=== PATIENT | female | born 1995 | race American Indian/Alaskan Native ===

== ENCOUNTER 2021-11-28 16:21 | Inpatient (IN) | payer MEDICAID ==
[2021-11-28] MEDS ORDERED: SODIUM CHLORIDE 0.9% 1000 ML 1,000 ML IV ONE (16:53)
[2021-11-28] MEDS ORDERED: ONDANSETRON 4 MG/2 ML INJ IV ONE (16:53)
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
[2021-11-28 18:07] LABS: Basophils % (Auto) 0.7 % (0.0-1.8); Hematocrit 42.3 % (30.3-42.9); Hemoglobin 13.9 gm/dl (10.1-14.3); Lymphocytes # (Auto) 0.8 K/mm3 (1.2-5.4); Lymphocytes % (Auto) 14.8 % (13.4-35.0); Mean Corpuscular HGB Conc 33 % (30-34); Mean Corpuscular Volume 93 fl (79-97); Monocytes # (Auto) 0.5 K/mm3 (0.0-0.8); Monocytes % (Auto) 8.7 % (0.0-7.3); Platelet Count 241 K/mm3 (140-440); Red Blood Count 4.56 M/mm3 (3.65-5.03); Red Cell Distribution Width 13.6 % (13.2-15.2)
[2021-11-28 18:32] LABS: Alanine Aminotransferase 108 units/L (7-56); Albumin 4.9 g/dL (3.9-5); BUN/Creatinine Ratio 20; Blood Urea Nitrogen 16 mg/dL (7-17); Calcium 9.5 mg/dL (8.4-10.2); Hemolysis Index 4
[2021-11-28] MEDS ORDERED: DEXTROSE 5% IV ONE ×2 (20:23→21:25)
[2021-11-28] MEDS ORDERED: ACETADOTE IV ONE ×2 (20:23→21:25)
[2021-11-28] MEDS ORDERED: WATER IV ONE ×2 (20:23→21:25)
[2021-11-28 21:01] LABS: INR 1.17 (0.87-1.13)
[2021-11-28] MEDS ORDERED: ACETAMINOPHEN 325 MG TAB PO PRN (21:31)
[2021-11-28] MEDS ORDERED: MORPHINE 4 MG/1 ML INJ IV PRN (21:31)
[2021-11-28] MEDS ORDERED: ALBUTEROL 2.5 MG/3 ML NEBU IH PRN (21:31)
[2021-11-28] MEDS ORDERED: MORPHINE 2 MG/1 ML INJ IV PRN (21:31)
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
[2021-11-28] MEDS: ONDANSETRON 4 MG/2 ML INJ IV PRN (23:20)
[2021-11-28] MEDS: FAMOTIDINE 20 MG/2 ML INJ IV SCH (23:20)
[2021-11-29] MEDS ORDERED: WATER IV ONE ×2 (01:25→21:30)
[2021-11-29] MEDS ORDERED: ACETADOTE IV ONE ×2 (01:25→21:30)
[2021-11-29] MEDS ORDERED: DEXTROSE 5% IV ONE ×2 (01:25→21:30)
[2021-11-29 02:03] LABS: Bilirubin,Urine NEG (Negative); Blood,Urine MOD (Negative); Color,Urine Yellow (Yellow); Urobilinogen,Urine < 2.0 mg/dL (<2.0)
[2021-11-29 02:10] LABS: Bacteria,Urine 1+ /HPF (Negative); Mucus,Urine FEW /HPF
[2021-11-29 02:12] LABS: Amphetamine Screen,Urine PRESUMPTIVE NEGATIVE; Benzodiazepines Screen,Urine PRESUMPTIVE NEGATIVE; Cannabinoid Screen,Urine PRESUMPTIVE NEGATIVE; Cocaine Screen,Urine PRESUMPTIVE NEGATIVE; Methadone Screen,Urine PRESUMPTIVE NEGATIVE; Opiate Screen,Urine PRESUMPTIVE NEGATIVE
[2021-11-29 02:19] LABS: HCG Qualitative,Urine Negative (Negative)
[2021-11-29] MEDS: HEPARIN 5,000 UNIT/1 ML VIAL SUB-Q SCH ×2 (02:34→09:09)
[2021-11-29] MEDS: D5W/0.45% NACL 1,000 ML IV SCH ×2 (02:35→09:08)
[2021-11-29 05:25] LABS: Basophils % (Auto) 0.4 % (0.0-1.8); Eosinophils # (Auto) 0.1 K/mm3 (0.0-0.4); Eosinophils % (Auto) 0.6 % (0.0-4.3); Hematocrit 38.4 % (30.3-42.9); Hemoglobin 13.1 gm/dl (10.1-14.3); Lymphocytes # (Auto) 1.2 K/mm3 (1.2-5.4); Lymphocytes % (Auto) 14.7 % (13.4-35.0); Mean Corpuscular HGB Conc 34 % (30-34); Mean Corpuscular Volume 92 fl (79-97); Monocytes # (Auto) 0.9 K/mm3 (0.0-0.8); Monocytes % (Auto) 11.2 % (0.0-7.3); Platelet Count 222 K/mm3 (140-440); Red Blood Count 4.19 M/mm3 (3.65-5.03); Red Cell Distribution Width 13.2 % (13.2-15.2)
[2021-11-29 05:36] LABS: INR 1.32 (0.87-1.13)
[2021-11-29 05:41] LABS: Alanine Aminotransferase 99 units/L (7-56); Albumin 4.1 g/dL (3.9-5); Blood Urea Nitrogen 10 mg/dL (7-17); Calcium 8.5 mg/dL (8.4-10.2); Hemolysis Index 15
[2021-11-29 05:46] LABS: BUN/Creatinine Ratio 17
[2021-11-29] MEDS: IPRATROPIUM/ALBUTEROL SULFATE 3 ML AMPUL.NEB IH SCH ×4 (07:45→19:55)
[2021-11-29] MEDS: FAMOTIDINE 20 MG/2 ML INJ IV SCH (09:09)
[2021-11-29] MEDS: ONDANSETRON 4 MG/2 ML INJ IV PRN (09:09)
[2021-11-29 09:28] LABS: Alanine Aminotransferase 96 units/L (7-56); Blood Urea Nitrogen 8 mg/dL (7-17); Calcium 8.5 mg/dL (8.4-10.2); Hemolysis Index 46
[2021-11-29 09:48] LABS: BUN/Creatinine Ratio 13
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
[2021-11-29 19:46] LABS: INR 1.25 (0.87-1.13)
[2021-11-29 20:00] LABS: Alanine Aminotransferase 134 units/L (7-56); Albumin 4.2 g/dL (3.9-5); Blood Urea Nitrogen 4 mg/dL (7-17); Hemolysis Index 77
[2021-11-29 20:08] LABS: BUN/Creatinine Ratio 6
[2021-11-29] MEDS: ENOXAPARIN 40 MG/0.4 ML INJ SUB-Q SCH (23:13)
[2021-11-29] MEDS: FAMOTIDINE 20 MG TAB PO SCH (23:13)
[2021-11-30] MEDS: IPRATROPIUM/ALBUTEROL SULFATE 3 ML AMPUL.NEB IH SCH ×4 (04:02→21:12)
[2021-11-30 05:42] LABS: Alanine Aminotransferase 206 units/L (7-56)
[2021-11-30 05:52] LABS: Bilirubin,Direct < 0.2 mg/dL (0-0.2)
[2021-11-30] MEDS: ONDANSETRON 4 MG/2 ML INJ IV PRN (07:58)
[2021-11-30] MEDS: FAMOTIDINE 20 MG TAB PO SCH ×2 (09:43→22:22)
[2021-11-30 11:41] LABS: INR 1.16 (0.87-1.13)
[2021-11-30 11:44] LABS: Alanine Aminotransferase 252 units/L (7-56); Albumin 3.8 g/dL (3.9-5); Bilirubin,Direct < 0.2 mg/dL (0-0.2)
[2021-11-30] MEDS ORDERED: LACTATED RINGERS 1,000 ML IV ONE (12:27)
--- NOTE | 2021-11-30 13:24 | Progress Note ---
Assessment and Plan Tylenol Overdose 11/30/21: Discussed over the phone with mother and two other family members. Answered all questions to the best of my abilities. Did explain the risk of needing a transplant. Will continue to monitor liver function, if numbers continue to increase, will transfer to transplant capable facility. COntinue NAC therapy. NAC MOnitor LFT's Psych consult CCT 31 minutes. Subjective Date of service: 11/30/21 Interval history: LFT's worse Objective - Constitutional Vitals: Vital Signs - 12hr 11/30/21 11/30/21 11/30/21 01:30 02:00 02:30 Temperature Pulse Rate 72 68 66 Pulse Rate [ Anterior Bilateral Throughout] Pulse Rate [ From Monitor] Respiratory 17 13 17 Rate Respiratory Rate [Anterior Bilateral Throughout] Blood Pressure 101/53 103/57 103/57 O2 Sat by Pulse 99 98 98 Oximetry 11/30/21 11/30/21 11/30/21 03:00 03:30 04:00 Temperature 98.7 F Pulse Rate 76 68 64 Pulse Rate [ Anterior Bilateral Throughout] Pulse Rate [ 69 From Monitor] Respiratory 18 16 16 Rate Respiratory Rate [Anterior Bilateral Throughout] Blood Pressure 103/57 97/69 91/53 O2 Sat by Pulse 98 98 98 Oximetry 11/30/21 11/30/21 11/30/21 04:02 04:30 05:00 Temperature Pulse Rate 108 H 78 Pulse Rate [ 71 Anterior Bilateral Throughout] Pulse Rate [ From Monitor] Respiratory 17 22 Rate Respiratory 17 Rate [Anterior Bilateral Throughout] Blood Pressure 91/53 105/74 O2 Sat by Pulse 100 100 Oximetry 11/30/21 11/30/21 11/30/21 05:30 06:00 06:30 Temperature Pulse Rate 71 68 72 Pulse Rate [ Anterior Bilateral Throughout] Pulse Rate [ From Monitor] Respiratory 18 16 17 Rate Respiratory Rate [Anterior Bilateral Throughout] Blood Pressure 105/74 93/54 93/54 O2 Sat by Pulse 98 99 98 Oximetry 11/30/21 11/30/21 11/30/21 07:00 07:15 07:31 Temperature Pulse Rate 70 67 Pulse Rate [ 80 Anterior Bilateral Throughout] Pulse Rate [ From Monitor] Respiratory 17 18 Rate Respiratory 18 Rate [Anterior Bilateral Throughout] Blood Pressure 99/61 99/61 O2 Sat by Pulse 99 98 100 Oximetry 11/30/21 11/30/21 11/30/21 08:00 08:31 09:00 Temperature 98.9 F Pulse Rate 69 76 88 Pulse Rate [ Anterior Bilateral Throughout] Pulse Rate [ 80 From Monitor] Respiratory 21 23 24 Rate Respiratory Rate [Anterior Bilateral Throughout] Blood Pressure 107/60 107/60 118/78 O2 Sat by Pulse 99 100 100 Oximetry 11/30/21 11/30/21 11/30/21 09:12 09:31 10:01 Temperature Pulse Rate 80 97 H 93 H Pulse Rate [ Anterior Bilateral Throughout] Pulse Rate [ From Monitor] Respiratory 18 21 Rate Respiratory Rate [Anterior Bilateral Throughout] Blood Pressure 118/78 118/78 O2 Sat by Pulse 100 100 Oximetry 11/30/21 11/30/21 11/30/21 10:31 11:00 11:31 Temperature Pulse Rate 85 87 63 Pulse Rate [ Anterior Bilateral Throughout] Pulse Rate [ From Monitor] Respiratory 20 24 19 Rate Respiratory Rate [Anterior Bilateral Throughout] Blood Pressure 118/78 123/79 123/79 O2 Sat by Pulse 96 100 98 Oximetry 11/30/21 11/30/21 11/30/21 11:34 11:35 11:36 Temperature 99.1 F Pulse Rate 73 Pulse Rate [ Anterior Bilateral Throughout] Pulse Rate [ 73 From Monitor] Respiratory 16 Rate Respiratory Rate [Anterior Bilateral Throughout] Blood Pressure O2 Sat by Pulse 99 Oximetry 11/30/21 11/30/21 11/30/21 12:01 12:31 13:00 Temperature Pulse Rate 72 73 87 Pulse Rate [ Anterior Bilateral Throughout] Pulse Rate [ From Monitor] Respiratory 18 17 17 Rate Respiratory Rate [Anterior Bilateral Throughout] Blood Pressure 93/53 93/53 114/51 O2 Sat by Pulse 99 98 99 Oximetry - Labs CBC & Chem 7: 12/01/21 04:33 12/01/21 04:33 Labs: Abnormal lab results 11/29/21 11/29/21 11/29/21 Range/Units 18:58 18:58 18:58 PT 17.2 H (12.2-14.9) Sec. INR 1.25 H (0.87-1.13) BUN 4 L (7-17) mg/dL Glucose 103 H (65-100) mg/dL AST 91 H (5-40) units/L ALT 134 H (7-56) units/L Total Protein (6.3-8.2) g/dL Albumin (3.9-5) g/dL Acetaminophen < 5.0 L (10.0-30.0) ug/mL 11/30/21 11/30/21 11/30/21 Range/Units 05:05 10:52 11:09 PT 16.1 H (12.2-14.9) Sec. INR 1.16 H (0.87-1.13) BUN (7-17) mg/dL Glucose (65-100) mg/dL AST 137 H 159 H (5-40) units/L ALT 206 H 252 H (7-56) units/L Total Protein 6.2 L (6.3-8.2) g/dL Albumin 3.8 L (3.9-5) g/dL Acetaminophen (10.0-30.0) ug/mL Medications & Allergies - Medications Allergies/Adverse Reactions: Allergies No Known Allergies Allergy (Verified 11/28/21 20:30) Home Medications: Home Medications Medication Instructions Recorded Confirmed Last Taken Type No Known Home Medications [No 11/29/21 11/29/21 Unknown History Reported Home Medications] Active Medications: Generic Name Dose Route Start Last Admin Trade Name Freq PRN Reason Stop Dose Admin Albuterol 2.5 mg 11/28/21 21:31 Albuterol 2.5 Mg/3 Ml Nebu IH Q3HRT PRN Shortness Of Breath Albuterol/Ipratropium 1 ampul 11/29/21 02:00 11/30/21 07:15 Ipratropium/Albuterol Sulfate 3 Ml Ampul.Neb IH 1 ampul Q6HRT GLEN Administration Enoxaparin Sodium 40 mg 11/29/21 22:00 11/29/21 23:13 Enoxaparin 40 Mg/0.4 Ml Inj SUB-Q 40 mg QDAY@2200 GLEN Administration Protocol Famotidine 20 mg 11/29/21 22:00 11/30/21 09:43 Famotidine 20 Mg Tab PO 20 mg BID GLEN Administration Acetylcysteine 7,500 mg/ 1,037.5 mls @ 62.5 mls/hr 11/29/21 21:30 11/29/21 22:12 Dextrose IV 11/30/21 14:05 62.5 mls/hr ONCE ONE Administration Lactated Ringer's 1,000 mls @ 999 mls/hr 11/30/21 12:27 Lactated Ringers IV 11/30/21 13:27 BOLUS ONE Ondansetron HCl 4 mg 11/28/21 21:31 11/30/21 07:58 Ondansetron 4 Mg/2 Ml Inj IV 4 mg Q8H PRN Administration Nausea And Vomiting Sodium Chloride 10 ml 11/28/21 22:00 11/30/21 09:43 Sodium Chloride 0.9% 10 Ml Flush Syringe IV 10 ml BID GLEN Administration Sodium Chloride 10 ml 11/28/21 21:31 Sodium Chloride 0.9% 10 Ml Flush Syringe IV PRN PRN LINE FLUSH
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
[2021-11-30] MEDS ORDERED: traMADol 50 MG TAB PO PRN (13:44)
--- NOTE | 2021-11-30 14:21 | Progress Note ---
Subjective - Reason for Consult Consult date: 11/30/21 Reason for consult: Intentional OD - Chief Complaint Chief complaint: The patient was seen today. She appears down and withdrawn. She says she feels a little bit better. The patient says she has a headache. When asking about SI, she says "no. I love life. I want to live. I have a son I have to live for." She denies homicidal thoughts and hallucinations. Will start antidepressant to help with depression. REVIEW OF SYSTEMS Constitutional: Negative for weight loss ENT: Negative for stridor Respiratory: Negative for cough or hemoptysis All other systems reviewed and are negative MENTAL STATUS EXAMINATION General Appearance and Behavior: Age appropriate, wearing appropriate clothes, cooperative, polite with questioning, good eye contact Cooperation: cooperative Psychomotor Behavior: Psychomotor normal Mood: better Affect and affective range: congruent with stated mood Thought Process: Goal directed Thought Content: Reality oriented Speech: Normal volume, Regular rate and rhythm Suicidal Ideation: Denies Homicidal Ideation: Denies Hallucination: Denies Delusions: None elicited Impulse Control: Limited Insight and Judgment: Limited Memory: Intact Attention:attentive Orientation: Alert and oriented Diagnoses: Intentional Overdose of Acetaminophen Treatment Plan 1013 Lexapro 5mg po daily Sitter: Defer to primary Medical: Per primary Disposition: Recommend acute psychiatric inpatient treatment Will follow. Thanks Case staffed with Dr. Rothman Mental Status Exam - Vital signs Last Vital Signs Temp 99.1 F 11/30/21 11:35 Pulse 91 H 11/30/21 14:01 Resp 25 H 11/30/21 14:01 BP 114/51 11/30/21 14:01 Pulse Ox 99 11/30/21 14:01
[2021-11-30] MEDS ORDERED: DEXTROSE 5% IV ONE (14:30)
[2021-11-30] MEDS ORDERED: WATER IV ONE (14:30)
[2021-11-30] MEDS ORDERED: ACETADOTE IV ONE (14:30)
[2021-11-30] MEDS: ESCITALOPRAM 10 MG TAB PO SCH (17:40)
[2021-11-30 19:46] LABS: INR 1.14 (0.87-1.13)
[2021-11-30 20:04] LABS: Alanine Aminotransferase 253 units/L (7-56); Albumin 3.8 g/dL (3.9-5)
[2021-11-30 20:09] LABS: Bilirubin,Direct < 0.2 mg/dL (0-0.2)
[2021-11-30] MEDS: ENOXAPARIN 40 MG/0.4 ML INJ SUB-Q SCH (22:23)
[2021-12-01 01:04] LABS: INR 1.16 (0.87-1.13)
[2021-12-01 01:08] LABS: Alanine Aminotransferase 239 units/L (7-56); Albumin 3.7 g/dL (3.9-5)
[2021-12-01 01:09] LABS: Bilirubin,Direct < 0.2 mg/dL (0-0.2)
[2021-12-01] MEDS: IPRATROPIUM/ALBUTEROL SULFATE 3 ML AMPUL.NEB IH SCH ×4 (01:15→20:00)
[2021-12-01 05:10] LABS: Hematocrit 38.7 % (30.3-42.9); Mean Corpuscular HGB Conc 34 % (30-34); Mean Corpuscular Volume 92 fl (79-97); Platelet Count 221 K/mm3 (140-440); Red Cell Distribution Width 13.7 % (13.2-15.2)
[2021-12-01 05:18] LABS: INR 1.09 (0.87-1.13)
[2021-12-01 05:19] LABS: Partial Thromboplastin Time 30.4 Sec. (24.2-36.6)
[2021-12-01 05:25] LABS: Alanine Aminotransferase 225 units/L (7-56); Albumin 3.6 g/dL (3.9-5); Blood Urea Nitrogen 2 mg/dL (7-17); Calcium 8.6 mg/dL (8.4-10.2); Hemolysis Index 7
[2021-12-01 05:28] LABS: Alanine Aminotransferase 223 units/L (7-56); Albumin 3.8 g/dL (3.9-5)
[2021-12-01 05:36] LABS: Bilirubin,Direct < 0.2 mg/dL (0-0.2)
[2021-12-01 05:39] LABS: BUN/Creatinine Ratio 3
[2021-12-01] MEDS ORDERED: POTASSIUM CHLORIDE ER 20 MEQ TAB PO ONE (06:16)
[2021-12-01] MEDS ORDERED: WATER IV ONE (07:15)
[2021-12-01] MEDS ORDERED: DEXTROSE 5% IV ONE (07:15)
[2021-12-01] MEDS ORDERED: ACETADOTE IV ONE (07:15)
[2021-12-01] MEDS: FAMOTIDINE 20 MG TAB PO SCH ×2 (09:33→21:05)
[2021-12-01] MEDS: ESCITALOPRAM 10 MG TAB PO SCH (09:33)
--- NOTE | 2021-12-01 10:37 | Progress Note ---
Assessment and Plan Tylenol Overdose 12/01/21: Touch base with poison control again to see if nac should be continued. Called mother but no answer to update her. Fine with keeping in unit but if NAC is needed and can be done on the floor, no issues with transfer, with sitter. Appreciate psych, needs in patient therapy. 11/30/21: Discussed over the phone with mother and two other family members. Answered all questions to the best of my abilities. Did explain the risk of needing a transplant. Will continue to monitor liver function, if numbers con tinue to increase, will transfer to transplant capable facility. COntinue NAC therapy. NAC MOnitor LFT's Psych consult CCT 31 minutes. Subjective Date of service: 12/01/21 Interval history: LFTs, did peak but now trending back down. Still on NAC. INR is normal. Objective - Constitutional Vitals: Vital Signs - 12hr 11/30/21 11/30/21 11/30/21 23:00 23:13 23:31 Temperature Pulse Rate 76 90 128 H Pulse Rate [ Anterior Bilateral Throughout] Pulse Rate [ From Monitor] Respiratory 19 21 23 Rate Respiratory Rate [Anterior Bilateral Throughout] Blood Pressure 120/80 120/80 120/80 O2 Sat by Pulse 99 100 97 Oximetry 11/30/21 12/01/21 12/01/21 23:57 00:00 00:31 Temperature 99.0 F Pulse Rate 78 95 H Pulse Rate [ Anterior Bilateral Throughout] Pulse Rate [ 74 From Monitor] Respiratory 20 23 Rate Respiratory Rate [Anterior Bilateral Throughout] Blood Pressure 98/50 98/50 O2 Sat by Pulse 98 99 Oximetry 12/01/21 12/01/21 12/01/21 01:00 01:31 02:00 Temperature Pulse Rate 84 73 95 H Pulse Rate [ Anterior Bilateral Throughout] Pulse Rate [ From Monitor] Respiratory 16 15 16 Rate Respiratory Rate [Anterior Bilateral Throughout] Blood Pressure 101/59 101/59 98/69 O2 Sat by Pulse 98 98 99 Oximetry 12/01/21 12/01/21 12/01/21 02:31 03:00 03:31 Temperature Pulse Rate 78 75 62 Pulse Rate [ Anterior Bilateral Throughout] Pulse Rate [ From Monitor] Respiratory 21 16 16 Rate Respiratory Rate [Anterior Bilateral Throughout] Blood Pressure 98/69 92/60 92/60 O2 Sat by Pulse 99 96 97 Oximetry 12/01/21 12/01/21 12/01/21 04:00 04:31 05:00 Temperature 98.4 F Pulse Rate 63 88 70 Pulse Rate [ Anterior Bilateral Throughout] Pulse Rate [ 76 From Monitor] Respiratory 20 14 16 Rate Respiratory Rate [Anterior Bilateral Throughout] Blood Pressure 99/61 99/61 109/68 O2 Sat by Pulse 98 100 100 Oximetry 12/01/21 12/01/21 12/01/21 05:31 06:00 06:31 Temperature Pulse Rate 67 73 103 H Pulse Rate [ Anterior Bilateral Throughout] Pulse Rate [ From Monitor] Respiratory 17 17 15 Rate Respiratory Rate [Anterior Bilateral Throughout] Blood Pressure 109/68 105/69 105/69 O2 Sat by Pulse 97 100 99 Oximetry 12/01/21 12/01/21 12/01/21 07:00 07:17 07:31 Temperature Pulse Rate 70 83 Pulse Rate [ 66 Anterior Bilateral Throughout] Pulse Rate [ From Monitor] Respiratory 18 14 Rate Respiratory 18 Rate [Anterior Bilateral Throughout] Blood Pressure 113/74 113/74 O2 Sat by Pulse 96 98 100 Oximetry 12/01/21 12/01/21 12/01/21 08:00 08:31 09:00 Temperature 98.7 F Pulse Rate 101 H 87 88 Pulse Rate [ Anterior Bilateral Throughout] Pulse Rate [ 76 From Monitor] Respiratory 17 20 21 Rate Respiratory Rate [Anterior Bilateral Throughout] Blood Pressure 108/66 108/66 125/52 O2 Sat by Pulse 99 100 100 Oximetry - Labs CBC & Chem 7: 12/01/21 04:33 12/01/21 04:33 Labs: Abnormal lab results 11/30/21 11/30/21 11/30/21 Range/Units 10:52 11:09 19:03 PT 16.1 H 15.9 H (12.2-14.9) Sec. INR 1.16 H 1.14 H (0.87-1.13) Potassium (3.6-5.0) mmol/L BUN (7-17) mg/dL AST 159 H (5-40) units/L ALT 252 H (7-56) units/L Total Protein (6.3-8.2) g/dL Albumin 3.8 L (3.9-5) g/dL 11/30/21 12/01/21 12/01/21 Range/Units 19:03 00:31 00:31 PT 16.1 H (12.2-14.9) Sec. INR 1.16 H (0.87-1.13) Potassium (3.6-5.0) mmol/L BUN (7-17) mg/dL AST 130 H 107 H (5-40) units/L ALT 253 H 239 H (7-56) units/L Total Protein (6.3-8.2) g/dL Albumin 3.8 L 3.7 L (3.9-5) g/dL 12/01/21 12/01/21 12/01/21 Range/Units 04:33 04:33 04:33 PT 15.4 H (12.2-14.9) Sec. INR (0.87-1.13) Potassium 3.0 L (3.6-5.0) mmol/L BUN 2 L (7-17) mg/dL AST 85 H 88 H (5-40) units/L ALT 225 H 223 H (7-56) units/L Total Protein 6.0 L 5.8 L (6.3-8.2) g/dL Albumin 3.6 L 3.8 L (3.9-5) g/dL Medications & Allergies - Medications Allergies/Adverse Reactions: Allergies No Known Allergies Allergy (Verified 11/28/21 20:30) Home Medications: Home Medications Medication Instructions Recorded Confirmed Last Taken Type No Known Home Medications [No 11/29/21 11/29/21 Unknown History Reported Home Medications] Active Medications: Generic Name Dose Route Start Last Admin Trade Name Freq PRN Reason Stop Dose Admin Albuterol 2.5 mg 11/28/21 21:31 Albuterol 2.5 Mg/3 Ml Nebu IH Q3HRT PRN Shortness Of Breath Albuterol/Ipratropium 1 ampul 11/29/21 02:00 12/01/21 07:17 Ipratropium/Albuterol Sulfate 3 Ml Ampul.Neb IH 1 ampul Q6HRT GLEN Administration Enoxaparin Sodium 40 mg 11/29/21 22:00 11/30/21 22:23 Enoxaparin 40 Mg/0.4 Ml Inj SUB-Q 40 mg QDAY@2200 GLEN Administration Protocol Escitalopram Oxalate 5 mg 11/30/21 15:00 12/01/21 09:33 Escitalopram 10 Mg Tab PO 5 mg QDAY GLEN Administration Famotidine 20 mg 11/29/21 22:00 12/01/21 09:33 Famotidine 20 Mg Tab PO 20 mg BID GLEN Administration Acetylcysteine 7,500 mg/ 1,037.5 mls @ 62.5 mls/hr 12/01/21 07:15 12/01/21 07:15 Dextrose IV 12/01/21 23:50 62.5 mls/hr ONCE ONE Administration Ondansetron HCl 4 mg 11/28/21 21:31 11/30/21 07:58 Ondansetron 4 Mg/2 Ml Inj IV 4 mg Q8H PRN Administration Nausea And Vomiting Sodium Chloride 10 ml 11/28/21 22:00 12/01/21 09:33 Sodium Chloride 0.9% 10 Ml Flush Syringe IV 10 ml BID GLEN Administration Sodium Chloride 10 ml 11/28/21 21:31 Sodium Chloride 0.9% 10 Ml Flush Syringe IV PRN PRN LINE FLUSH Tramadol HCl 25 mg 11/30/21 13:44 11/30/21 14:06 Tramadol 50 Mg Tab PO 25 mg Q8HR PRN Administration Pain, Moderate (4-6)
--- NOTE | 2021-12-01 11:20 | Progress Note ---
Subjective - Reason for Consult Consult date: 12/01/21 Reason for consult: intentional OD - Chief Complaint Chief complaint: The patient was seen today. She states she feels much better today. The patient denies SI/HI or any thoughts of wanting to hurt herself. She denies hallucinations of any kind. She says she's ready to see her son. Will continue to follow during medical stay. Recommend inpatient treatment, but disposition may change once medically clear. REVIEW OF SYSTEMS Constitutional: Negative for weight loss ENT: Negative for stridor Respiratory: Negative for cough or hemoptysis All other systems reviewed and are negative MENTAL STATUS EXAMINATION General Appearance and Behavior: Age appropriate, wearing appropriate clothes, cooperative, polite with questioning, good eye contact Cooperation: cooperative Psychomotor Behavior: Psychomotor normal Mood: better Affect and affective range: congruent with stated mood Thought Process: Goal directed Thought Content: Reality oriented Speech: Normal volume, Regular rate and rhythm Suicidal Ideation: Denies Homicidal Ideation: Denies Hallucination: Denies Delusions: None elicited Impulse Control: Limited Insight and Judgment: Limited Memory: Intact Attention:attentive Orientation: Alert and oriented Diagnoses: Intentional Overdose of Acetaminophen Treatment Plan 1013 Lexapro 5mg po daily Sitter: Defer to primary Medical: Per primary Disposition: Recommend acute psychiatric inpatient treatment Will follow. Thanks Case staffed with Dr. Rothman Mental Status Exam - Vital signs Last Vital Signs Temp 98.7 F 12/01/21 08:00 Pulse 92 H 12/01/21 11:00 Resp 19 12/01/21 11:00 BP 121/65 12/01/21 11:00 Pulse Ox 100 12/01/21 11:00
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
[2021-12-01 16:02] LABS: INR 1.11 (0.87-1.13); Partial Thromboplastin Time 25.4 Sec. (24.2-36.6)
[2021-12-01 16:11] LABS: Alanine Aminotransferase 215 units/L (7-56); Albumin 3.9 g/dL (3.9-5)
[2021-12-01 16:12] LABS: Bilirubin,Direct < 0.2 mg/dL (0-0.2)
--- NOTE | 2021-12-01 20:03 | Gastroenterology Progress Note ---
Assessment and Plan 1. Liver: acute liver toxicity due to acetominophen s/ Acetadote now with improving LFT's - no signs of pending liver failure - follow labs - diet as tolerated - avoid hepatotoxic drugs - if LFT's continue to improve in am ok to dc from GI standpoint - will follow Subjective Date of service: 12/01/21 Interval history: - no GI complaints overnight Objective - Constitutional Vitals: Temp Pulse Resp BP Pulse Ox 99.3 F 95 H 24 125/80 98 12/01/21 19:40 12/01/21 19:00 12/01/21 19:00 12/01/21 19:00 12/01/21 19:00 General appearance: no acute distress - EENT Eyes: PERRL - Respiratory Respiratory: bilateral: CTA - Gastrointestinal General gastrointestinal: Present: soft, non-tender, non-distended - Labs CBC & Chem 7: 12/01/21 04:33 12/01/21 04:33 Labs: Laboratory Results - last 24 hr 11/30/21 12/01/21 12/01/21 19:03 00:31 00:31 WBC RBC Hgb Hct MCV MCH MCHC RDW Plt Count PT 16.1 H INR 1.16 H APTT 32.0 Sodium Potassium Chloride Carbon Dioxide Anion Gap BUN Creatinine Estimated GFR BUN/Creatinine Ratio Glucose Calcium Total Bilirubin 0.40 0.40 Direct Bilirubin < 0.2 < 0.2 Indirect Bilirubin 0.2 0.2 AST 130 H 107 H ALT 253 H 239 H Alkaline Phosphatase 45 43 Total Protein 6.6 6.4 Albumin 3.8 L 3.7 L Albumin/Globulin Ratio 1.4 1.4 12/01/21 12/01/21 12/01/21 04:33 04:33 04:33 WBC 5.7 RBC 4.20 Hgb 13.0 Hct 38.7 MCV 92 MCH 31 MCHC 34 RDW 13.7 Plt Count 221 PT 15.4 H INR 1.09 APTT 30.4 Sodium 139 Potassium 3.0 L Chloride 105.1 Carbon Dioxide 23 Anion Gap 14 BUN 2 L Creatinine 0.6 Estimated GFR > 60 BUN/Creatinine Ratio 3 Glucose 100 Calcium 8.6 Total Bilirubin 0.30 Direct Bilirubin Indirect Bilirubin AST 85 H ALT 225 H Alkaline Phosphatase 40 Total Protein 6.0 L Albumin 3.6 L Albumin/Globulin Ratio 1.5 12/01/21 12/01/21 12/01/21 04:33 15:28 15:28 WBC RBC Hgb Hct MCV MCH MCHC RDW Plt Count PT 15.6 H INR 1.11 APTT 25.4 Sodium Potassium Chloride Carbon Dioxide Anion Gap BUN Creatinine Estimated GFR BUN/Creatinine Ratio Glucose Calcium Total Bilirubin 0.30 0.30 Direct Bilirubin < 0.2 < 0.2 Indirect Bilirubin 0.1 0.1 AST 88 H 74 H ALT 223 H 215 H Alkaline Phosphatase 42 43 Total Protein 5.8 L 6.6 Albumin 3.8 L 3.9 Albumin/Globulin Ratio 1.9 1.4
[2021-12-01 20:26] LABS: Alanine Aminotransferase 211 units/L (7-56); Albumin 3.8 g/dL (3.9-5); Bilirubin,Direct < 0.2 mg/dL (0-0.2)
[2021-12-01 20:34] LABS: INR 1.11 (0.87-1.13); Partial Thromboplastin Time 26.9 Sec. (24.2-36.6)
[2021-12-01] MEDS: ENOXAPARIN 40 MG/0.4 ML INJ SUB-Q SCH (21:05)
[2021-12-02 01:11] LABS: INR 1.1 (0.87-1.13); Partial Thromboplastin Time 31.9 Sec. (24.2-36.6)
[2021-12-02 01:20] LABS: Alanine Aminotransferase 209 units/L (7-56); Albumin 3.9 g/dL (3.9-5)
[2021-12-02 01:26] LABS: Bilirubin,Direct < 0.2 mg/dL (0-0.2)
[2021-12-02 06:19] LABS: Hematocrit 39.1 % (30.3-42.9); Hemoglobin 12.8 gm/dl (10.1-14.3); Mean Corpuscular HGB Conc 33 % (30-34); Mean Corpuscular Volume 93 fl (79-97); Platelet Count 234 K/mm3 (140-440); Red Blood Count 4.22 M/mm3 (3.65-5.03); Red Cell Distribution Width 13.6 % (13.2-15.2)
[2021-12-02 06:27] LABS: Blood Urea Nitrogen 3 mg/dL (7-17); Hemolysis Index 5; INR 1.03 (0.87-1.13)
[2021-12-02 06:28] LABS: Alanine Aminotransferase 215 units/L (7-56); Albumin 3.9 g/dL (3.9-5); Partial Thromboplastin Time 27.8 Sec. (24.2-36.6)
[2021-12-02 06:32] LABS: Bilirubin,Direct < 0.2 mg/dL (0-0.2)
[2021-12-02 06:35] LABS: BUN/Creatinine Ratio 5
[2021-12-02] MEDS ORDERED: POTASSIUM CHLORIDE ER 20 MEQ TAB PO ONE (06:41)
[2021-12-02] MEDS ORDERED: DEXTROSE 5% IV ONE (10:00)
[2021-12-02] MEDS ORDERED: WATER IV ONE (10:00)
[2021-12-02] MEDS ORDERED: ACETADOTE IV ONE (10:00)
[2021-12-02] MEDS: ESCITALOPRAM 10 MG TAB PO SCH (10:51)
[2021-12-02] MEDS: FAMOTIDINE 20 MG TAB PO SCH ×2 (10:51→21:42)
[2021-12-02] MEDS: ACETADOTE IV SCH (11:00)
[2021-12-02] MEDS: DEXTROSE 5% IV SCH (11:00)
[2021-12-02] MEDS: WATER IV SCH (11:00)
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
[2021-12-02 13:03] LABS: Alanine Aminotransferase 235 units/L (7-56); INR 1.02 (0.87-1.13)
[2021-12-02 13:04] LABS: Partial Thromboplastin Time 27.7 Sec. (24.2-36.6)
[2021-12-02 13:20] LABS: Bilirubin,Direct < 0.2 mg/dL (0-0.2)
--- NOTE | 2021-12-02 15:10 | Gastroenterology Progress Note ---
Assessment and Plan 1. Liver: acute tylenol overdose now s/p treatment - noted slight increased lft's today nut overall stable with labs not suggestive of acute liver failure - will follow up on Poison control recommendations as requested by primary team - if LFT's stable in am and ok with Poison control ok to dc from GI standpoint - will follow Subjective Date of service: 12/02/21 Interval history: - no specific GI or liver complaints overnight Objective - Constitutional Vitals: Temp Pulse Resp BP Pulse Ox 98.3 F 84 16 110/56 96 12/02/21 13:54 12/02/21 13:54 12/02/21 13:54 12/02/21 13:54 12/02/21 13:54 General appearance: no acute distress - EENT Eyes: PERRL - Respiratory Respiratory: bilateral: CTA - Cardiovascular Rhythm: regular Heart Sounds: Present: S1 & S2 - Gastrointestinal General gastrointestinal: Present: soft, non-tender, non-distended - Labs CBC & Chem 7: 12/02/21 05:45 12/02/21 05:45 Labs: Laboratory Results - last 24 hr 12/01/21 12/01/21 12/01/21 15:28 15:28 19:56 WBC RBC Hgb Hct MCV MCH MCHC RDW Plt Count PT 15.6 H 15.6 H INR 1.11 1.11 APTT 25.4 26.9 Sodium Potassium Chloride Carbon Dioxide Anion Gap BUN Creatinine Estimated GFR BUN/Creatinine Ratio Glucose Calcium Total Bilirubin 0.30 Direct Bilirubin < 0.2 Indirect Bilirubin 0.1 AST 74 H ALT 215 H Alkaline Phosphatase 43 Total Protein 6.6 Albumin 3.9 Albumin/Globulin Ratio 1.4 12/01/21 12/02/21 12/02/21 19:56 00:38 00:38 WBC RBC Hgb Hct MCV MCH MCHC RDW Plt Count PT 15.5 H INR 1.10 APTT 31.9 Sodium Potassium Chloride Carbon Dioxide Anion Gap BUN Creatinine Estimated GFR BUN/Creatinine Ratio Glucose Calcium Total Bilirubin 0.40 0.50 Direct Bilirubin < 0.2 < 0.2 Indirect Bilirubin 0.2 0.3 AST 66 H 74 H ALT 211 H 209 H Alkaline Phosphatase 42 45 Total Protein 6.5 6.8 Albumin 3.8 L 3.9 Albumin/Globulin Ratio 1.4 1.3 12/02/21 12/02/21 12/02/21 05:45 05:45 05:45 WBC 4.4 L RBC 4.22 Hgb 12.8 Hct 39.1 MCV 93 MCH 30 MCHC 33 RDW 13.6 Plt Count 234 PT 14.7 INR 1.03 APTT 27.8 Sodium Potassium Chloride Carbon Dioxide Anion Gap BUN Creatinine Estimated GFR BUN/Creatinine Ratio Glucose Calcium Total Bilirubin 0.60 Direct Bilirubin < 0.2 Indirect Bilirubin 0.4 AST 95 H ALT 215 H Alkaline Phosphatase 45 Total Protein 6.7 Albumin 3.9 Albumin/Globulin Ratio 1.4 12/02/21 12/02/21 12/02/21 05:45 12:27 12:27 WBC RBC Hgb Hct MCV MCH MCHC RDW Plt Count PT 14.5 INR 1.02 APTT 27.7 Sodium 141 Potassium 3.4 L Chloride 106.4 Carbon Dioxide 24 Anion Gap 14 BUN 3 L Creatinine 0.6 Estimated GFR > 60 BUN/Creatinine Ratio 5 Glucose 81 Calcium 9.0 Total Bilirubin 0.50 Direct Bilirubin < 0.2 Indirect Bilirubin 0.3 AST 102 H ALT 235 H Alkaline Phosphatase 44 Total Protein 7.0 Albumin 4.0 Albumin/Globulin Ratio 1.3
[2021-12-02] MEDS: ENOXAPARIN 40 MG/0.4 ML INJ SUB-Q SCH (21:42)
[2021-12-03 05:48] LABS: INR 1.03 (0.87-1.13)
[2021-12-03 05:59] LABS: Alanine Aminotransferase 207 units/L (7-56)
[2021-12-03 06:02] LABS: Bilirubin,Direct < 0.2 mg/dL (0-0.2)
[2021-12-03] MEDS: WATER IV SCH (08:11)
[2021-12-03] MEDS: DEXTROSE 5% IV SCH (08:11)
[2021-12-03] MEDS: ACETADOTE IV SCH (08:11)
[2021-12-03] MEDS: FAMOTIDINE 20 MG TAB PO SCH ×3 (08:16→22:32)
[2021-12-03] MEDS: ESCITALOPRAM 10 MG TAB PO SCH ×2 (08:16→19:08)
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
--- NOTE | 2021-12-03 12:20 | Gastroenterology Progress Note ---
Assessment and Plan 1. GI: lft's improving - diet as tolerated - ok to dc from GI standpoint - will sign off, call if needed Subjective Date of service: 12/03/21 Interval history: - no GI issues overnight Objective - Constitutional Vitals: Temp Pulse Resp BP Pulse Ox 98.4 F 69 16 110/64 96 12/03/21 06:23 12/03/21 06:23 12/03/21 06:23 12/03/21 06:23 12/03/21 06:23 General appearance: no acute distress - EENT Eyes: PERRL - Respiratory Respiratory: bilateral: CTA - Cardiovascular Rhythm: regular Heart Sounds: Present: S1 & S2 - Gastrointestinal General gastrointestinal: Present: soft, non-tender, non-distended - Labs CBC & Chem 7: 12/02/21 05:45 12/02/21 05:45 Labs: Laboratory Results - last 24 hr 12/02/21 12/02/21 12/03/21 12:27 12:27 05:16 PT 14.5 INR 1.02 APTT 27.7 Total Bilirubin 0.50 0.60 Direct Bilirubin < 0.2 < 0.2 Indirect Bilirubin 0.3 0.4 AST 102 H 82 H ALT 235 H 207 H Alkaline Phosphatase 44 43 Total Protein 7.0 6.8 Albumin 4.0 4.0 Albumin/Globulin Ratio 1.3 1.4 12/03/21 05:16 PT 14.7 INR 1.03 APTT Total Bilirubin Direct Bilirubin Indirect Bilirubin AST ALT Alkaline Phosphatase Total Protein Albumin Albumin/Globulin Ratio
[2021-12-03] MEDS: ENOXAPARIN 40 MG/0.4 ML INJ SUB-Q SCH (22:32)
[2021-12-04 05:17] LABS: INR 0.99 (0.87-1.13)
[2021-12-04 05:21] LABS: Alanine Aminotransferase 187 units/L (7-56); Albumin 4.3 g/dL (3.9-5)
[2021-12-04 05:24] LABS: Bilirubin,Direct < 0.2 mg/dL (0-0.2)
[2021-12-04] MEDS: DEXTROSE 5% IV SCH (06:31)
[2021-12-04] MEDS: WATER IV SCH (06:31)
[2021-12-04] MEDS: ACETADOTE IV SCH (06:31)
[2021-12-04] MEDS: ESCITALOPRAM 10 MG TAB PO SCH (10:03)
[2021-12-04] MEDS: FAMOTIDINE 20 MG TAB PO SCH ×2 (10:03→22:33)
[2021-12-04 22:06] VITALS: BP 118/73
[2021-12-04] MEDS: ENOXAPARIN 40 MG/0.4 ML INJ SUB-Q SCH (22:33)
[2021-12-05] MEDS: ACETADOTE IV SCH (01:04)
[2021-12-05] MEDS: WATER IV SCH (01:04)
[2021-12-05] MEDS: DEXTROSE 5% IV SCH (01:04)
[2021-12-05 05:33] LABS: INR 1.03 (0.87-1.13)
[2021-12-05 05:35] LABS: Alanine Aminotransferase 146 units/L (7-56)
[2021-12-05 05:41] LABS: Bilirubin,Direct < 0.2 mg/dL (0-0.2)
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
[2021-12-05] MEDS: ESCITALOPRAM 10 MG TAB PO SCH (10:05)
[2021-12-05] MEDS: FAMOTIDINE 20 MG TAB PO SCH (10:06)
== END 2021-12-05 13:19 | disposition home or self-care (01) | DRG 918 ==
LOC: ED 16:21 → CC1 21:31 → 3A 12-01 23:21
PROVIDERS: ADMIT Hospitalist; ATTEND Hospitalist
DX: T39.1X2A Poisoning by 4-Aminophenol derivatives, intentional self-harm, initial encounter (principal); E87.6 Hypokalemia; Y92.89 Other specified places as the place of occurrence of the external cause; E87.1 Hypo-osmolality and hyponatremia
CPT/HCPCS: 36415; 80048; 80053; 80076; 80307; 80320; 81001; 81025; 85025; 85027; 85610; 85730; 94640; G0378; J3490; J7060; J7070; G0480; J0132; J1644; J1650; J2405; J7030; J7120